=== PATIENT | female | born 1940 | race Caucasian/White ===

== ENCOUNTER → 2016-11-22 | Outpatient (CLI) | payer MEDICARE, BC ==
[~2016-11-22] MED LIST: AMLODIPINE BESYL5 MG PO; HYDROCODON-ACE1 EAC5 PO; LISINOPRIL10 MG PO; METFORMIN HCL500 M1 PO; NEXIUM PO; PRAMIPEXOLE DI0.5 MG PO; PRAVASTATIN SOD80 MG PO; RESTORIL15 MG PO; VITAMIN B-1000 MCG/1 IM
--- NOTE | ~2016-11-22 | CR72 ---
[facility] A Service of [facility] & [facility] RADIOLOGY TEXT RESULTS PATIENT: MICAH NAJERA LOCATION: CIVR : 41 UNIT #: [id number] AGE: [address]: Samantha Dial MD SEX: F ORDER DR: [id number] [facility] [address] [place], [place] [address] [id number] O MR#: [id number] Acc #: [id number] NAME: MICAH NAJERA : 1940 SEX: F STUDY DATE/TIME: 11/22/2016 11:34 UNIT: [facility] ROOM: STUDY DESCRIPTION: CR Chest Single View Portable Attending Physician: Samantha Dial M.D. Ordering Physician: Samantha Dial M.D. Primary Care Physician: Sahil Vila M.D. MEDICAL IMAGING REPORT This report is preliminary unless electronic signature is present EXAM Single view of the chest, 11/22/2016 at 11:34 hours COMPARISON Single view of the chest, 11/22/2016 at 09:16 hours HISTORY The patient had right lung biopsy today. Follow-up. FINDINGS A single view of the chest was obtained. The patient is post lung biopsy. No obvious pneumothorax is seen. There is no significant interval change when compared to the prior chest x-ray from earlier today. Dictated by... Cliff Erazo M.D. THIS IS AN ELECTRONICALLY VERIFIED REPORT Cliff Erazo M.D. at 11/24/2016 10:25 AM CPR/kayla TD: 11/22/2016 13:27 JOB #: [id number] MEDICAL IMAGING REPORT COPY
--- NOTE | ~2016-11-22 | CR71 ---
[facility] A Service of [facility] & [facility] RADIOLOGY TEXT RESULTS PATIENT: MICAH NAJERA LOCATION: CIVR : 41 UNIT #: [id number] AGE: [address]: Samantha Dial MD SEX: F ORDER DR: [id number] [facility] [address] [place], [place] [address] [id number] O MR#: [id number] Acc #: [id number] NAME: MICAH NAJERA : 1940 SEX: F STUDY DATE/TIME: 11/22/2016 9:16 UNIT: [facility] ROOM: STUDY DESCRIPTION: CR Chest Single View Attending Physician: Samantha Dial M.D. Ordering Physician: Samantha Dial M.D. Primary Care Physician: Sahil Vila M.D. MEDICAL IMAGING REPORT This report is preliminary unless electronic signature is present EXAM Single view of the chest dated 11/22/2016 COMPARISON None. HISTORY Right lung biopsy today. FINDINGS Single view of the chest was obtained. No patchy dense consolidation, pleural effusion, or pneumothorax is seen. There is some prominence of the bronchovascular markings in the lungs bilaterally and diffusely likely related to poor inspiration or mild interstitial lung disease. There is a history of biopsy. Well-defined mass is difficult to correlate in this modality. Please refer to the PET/CT from 11/09/2016. There is no obvious large pneumothorax or pleural effusion. Heart is of normal size. Dictated by... Cliff Erazo M.D. THIS IS AN ELECTRONICALLY VERIFIED REPORT Cliff Erazo M.D. at 11/24/2016 10:24 AM CPR/aa TD: 11/22/2016 11:57 JOB #: [id number] MEDICAL IMAGING REPORT COPY
--- NOTE | ~2016-11-22 | CT134 ---
[facility] A Service of [facility] & [facility] RADIOLOGY TEXT RESULTS PATIENT: MICAH NAJERA LOCATION: CIVR : 41 UNIT #: [id number] AGE: [address]: Samantha Dial MD SEX: F ORDER DR: [id number] [facility] [address] [place], [place] [address] [id number] O MR#: [id number] Acc #: [id number] NAME: MICAH NAJERA : 1940 SEX: F STUDY DATE/TIME: 11/22/2016 8:45 UNIT: CIVR ROOM: STUDY DESCRIPTION: CT Guide Attending Physician: Samantha Dial M.D. Ordering Physician: Samantha Dial M.D. Primary Care Physician: Sahil Vila M.D. MEDICAL IMAGING REPORT This report is preliminary unless electronic signature is present EXAM CT-guided lung biopsy INDICATION Right lung mass. This was hypermetabolic on a PET which was performed November 09, 2016. TECHNIQUE This CT examination was performed with one or more of the following radiation dose reduction techniques: automatic exposure control, adjustment of mA and/or kV according to patient size, and iterative reconstruction. PROCEDURE The risks, benefits, and alternatives to the procedure were explained to the patient, and signed, informed consent was obtained. She was placed in a right lateral decubitus position. Preliminary CT scan was performed through the region of interest which again showed a cavitary mass within the right lower lobe. Overlying skin was marked. Patient was prepped and draped in the usual sterile fashion. Time-out was performed as per protocol. Skin and subcutaneous tissues were anesthetized with buffered Lidocaine and a 17-gauge coaxial needle was advanced into the lesion. Repeat CT scan confirmed appropriate positioning of the needle. At this point, 2 core samples were obtained using an 18-gauge BioPince biopsy gun. Needle was then removed and manual pressure was applied until hemostasis was obtained. Final CT scan showed no evidence of pneumothorax. Patient did receive conscious sedation consisting of 3 mg of Versed and 200 mcg of Fentanyl and continuous monitoring was provided throughout the procedure. IMPRESSION Technically successful right lung biopsy as noted above. CT was used [facility]. [facility] A Service of [facility] & [facility] RADIOLOGY TEXT RESULTS PATIENT: MICAH NAJERA LOCATION: [facility] #: [id number] : 41 UNIT #: [id number] AGE: [address]: Samantha Dial MD SEX: F ORDER DR: during the procedure and permanent images were saved. Dictated by... Eunice Alvarez M.D. THIS IS AN ELECTRONICALLY VERIFIED REPORT Eunice Alvarez M.D. at 11/23/2016 5:57 PM MARY/belle TD: 11/23/2016 09:43 JOB #: [id number] MEDICAL IMAGING REPORT COPY
[2016-11-22 07:08] LABS: HEMATOCRIT 33.9 % (35.0-45.0); HEMOGLOBIN 11.2 gm/dL (12.0-16.0); MEAN CELL VOLUME 88.5 FL (83-96); MEAN CORPUSCULAR HEMOGLOBIN 29.2 PG (28-34); RED BLOOD COUNT 3.83 X10e (3.90-5.30); RED CELL DISTRIBUTION WIDTH 16.3 % (11.0-15.5); WHITE BLOOD COUNT 9.8 X10e3 (4.0-10.5)
[2016-11-22 07:33] LABS: INR 0.9; PARTIAL THROMBOPLASTIN TIME 23.2 SECONDS (23.5-31.3); PROTHROMBIN TIME (PATIENT) 9.9 SECONDS (9.6-11.5)
== END | disposition home or self-care (01) ==
LOC: CIVR 06:38
PROVIDERS: Internal Medicine Hematology
DX: C34.31 Malignant neoplasm of lower lobe, right bronchus or lung (principal); I82.501 Chronic embolism and thrombosis of unspecified deep veins of right lower extremity; E11.9 Type 2 diabetes mellitus without complications; I10 Essential (primary) hypertension; E78.5 Hyperlipidemia, unspecified; E78.00 Pure hypercholesterolemia, unspecified; B02.29 Other postherpetic nervous system involvement; K21.9 Gastro-esophageal reflux disease without esophagitis
CPT/HCPCS: 36415; 71010; 77012; 85027; 85610; 85730; 88305; 88341; 88342; J2250; J2405; J3010